=== PATIENT | female | born 1980 | race Caucasian/White ===

== ENCOUNTER 2018-01-30 17:46 | Emergency (ER) | payer OTHER ==
[2018-01-30] MEDS ORDERED: TRAMADOL HCL 50 MG TAB ONE (19:34)
--- NOTE | 2018-01-30 20:08 | RAD REPORT ---
EXAM DESCRIPTION: RAD - Foot Right 3 View - 01/30/2018 7:50 pm CLINICAL HISTORY: Persistent foot pain COMPARISON: None. FINDINGS: A small 2 millimeter bone fragment is seen along the lateral proximal aspect of the cuboid at the articulation with the calcaneus. This has the appearance of a small bone avulsion likely from ligament/tendon injury. Correlation is needed with any lateral right foot pain symptoms in this miranda on. No other evidence for fracture. No dislocation or periosteal reaction. No acute or destructive findin g seen. Early spurring at the Achilles attachment. No plantar spur. No air or foreign body in the soft tissues. IMPRESSION: Suspected small bone avulsion from the lateral proximal margin of the cuboid bone. Corre lation is needed with any pain symptoms or history of pain near the calcaneus cuboid articulation lat eral right foot.
--- NOTE | 2018-01-30 20:45 | ER ---
Nurse's Notes [facility] Name: Teresa Mayorga Age: 37 yrs Sex: Female : 1980 Arrival Date: 01/30/2018 Time: 17:52 Bed 28 Private MD: None, None Diagnosis: Fracture of cuboid bone Presentation: 01/30 18:14 Presenting complaint: Patient states: Pain to right foot for 2 months. Patient aj ambulated to triage with limp to right foot, while carrying her baby. Transition of care: patient was not received from another setting of care. Onset of symptoms was January 30, 2018. Care prior to arrival: None. 18:14 Method Of Arrival: Ambulatory aj 18:14 Acuity: VINNIE 4 aj 21:11 Initial Sepsis Screen: Does the patient meet any 2 criteria? No. Patient's initial mb3 sepsis screen is negative. Does the patient have a suspected source of infection? No. Patient's initial sepsis screen is negative. Triage Assessment: 18:15 General: Appears in no apparent distress. comfortable, Behavior is calm, cooperative, aj appropriate for age. Pain: Complains of pain in right foot. Neuro: Level of Consciousness is awake, alert, obeys commands, Oriented to person, place, time, situation, Appropriate for age. Respiratory: Airway is patent Respiratory effort is even, unlabored, Respiratory pattern is regular, symmetrical. Derm: Skin is intact, is healthy with good turgor, Skin is pink, warm \T\ dry. normal. Musculoskeletal: Reports pain in right foot. BILL PEDDLER: 18:15 LMP 01/27/2018 aj Historical: - Allergies: 18:15 Bees; aj - PMHx: 18:15 Diabetes - IDDM; aj - Immunization history:: Adult Immunizations unknown. - Social history:: Smoking status: Patient/guardian denies using tobacco. - Family history:: not pertinent. - Hospitalizations: : No recent hospitalization is reported. - History obtained from: . Screenin:10 Abuse screen: Denies threats or abuse. Nutritional screening: No deficits noted. mb3 Tuberculosis screening: No symptoms or risk factors identified. Fall Risk Fall in past 12 months (25 points). No secondary diagnosis (0 pts). No IV (0 pts). Ambulatory Aid- Crutches/Cane/Walker (15 pts). Gait- Impaired (20 pts.). Mental Status- Oriented to own ability (0 pts). Total Crowe Fall Scale indicates High Risk Score (45 or more points). Fall prevention measures have been instituted. Side Rails Up X 2 Placed Close to Nursing Station Frequent Obs/Assessments Occuring Family Present and informed to notify staff if the need to leave the bedside. Assessment: 20:15 General: Appears in no apparent distress. obese, unkempt, Behavior is cooperative, mb3 appropriate for age. Pain: Complains of pain in right foot. Neuro: No deficits noted. Cardiovascular: No deficits noted. Respiratory: No deficits noted. GI: No deficits noted. No signs and/or symptoms were reported involving the gastrointestinal system. : No deficits noted. No signs and/or symptoms were reported regarding the genitourinary system. Musculoskeletal: Swelling present in right foot Reports pain in right foot since 3 weeks ago. Vital Signs: 18:15 BP 116 / 75; Pulse 99; Resp 16; Temp 98.6; Pulse Ox 99% on R/A; Weight 101.15 kg; aj Height 5 ft. 5 in. (165.10 cm); 21:09 BP 135 / 93; Pulse 98; Resp 18; Pulse Ox 99% on R/A; mb3 18:15 Body Mass Index 37.11 (101.15 kg, 165.10 cm) aj ED Course: 17:52 Patient arrived in ED. mr 17:52 None, None is Private Physician. mr 18:15 Triage completed. aj 18:15 Arm band placed on right wrist. Patient placed in waiting room, Patient notified of aj wait time. X-ray ordered. 19:10 [facility] kav 19:10 Arun Marshall MD is Attending Physician. kav 19:30 Henok Narayan, RN is Primary Nurse. mb3 19:47 X-ray completed. Portable x-ray completed in exam room. Patient tolerated procedure kc2 well. 19:48 XRAY Foot RIGHT 3 View In Process Unspecified. EDMS 20:48 Rex Quintero MD is Referral Physician. kav 21:12 No provider procedures requiring assistance completed. Patient did not have IV access mb3 during this emergency room visit. 21:14 Patient has correct armband on for positive identification. Bed in low position. Call mb3 light in reach. Side rails up X 1. 21:35 Crutch training done. Orthoglass splint: Posterior short lleg splint applied on right mb3 leg. Administered Medications: 19:36 Drug: traMADol 50 mg Route: PO; mb3 20:57 Follow up: Response: No adverse reaction; Pain is decreased mb3 21:21 Drug: Ibuprofen 800 mg Route: PO; mb3 21:36 Follow up: Response: No adverse reaction mb3 Outcome: 20:45 Discharge ordered by MD. vera 21:35 Discharged to home ambulatory, with crutches, with family. mb3 21:35 Condition: stable 21:35 Discharge instructions given to patient, family, Instructed on discharge instructions, follow up and referral plans. medication usage, Demonstrated understanding of instructions, follow-up care, medications, Prescriptions given X 2. 21:36 Patient left the ED. mb3 Signatures: Dispatcher [employer] EDRossy Andrea, Kiya Alan RN, PARKING LOT SPOTTER PARKING LOT SPOTTER Trupti Roca mr Jaimie Garcia 2 Henok Narayan RN RN mb3
--- NOTE | 2018-01-30 20:45 | EDPHYS ---
Physician Documentation [facility] Name: Teresa Mayorga Age: 37 yrs Sex: Female : 1980 Arrival Date: 01/30/2018 Time: 17:52 Bed 28 Private MD: None, None ED Physician Arun Marshall HPI: 01/30 19:09 This 37 yrs old Female presents to ER via Ambulatory with complaints of Foot kav Pain. 19:30 The patient presents with an injury, pain, that is chronic. The complaints affect the kav dorsum of right foot. Context: The problem was sustained at work, resulted from a mis-step, on a floor edge, the patient can fully bear weight, the patient is able to ambulate, without difficulty. Onset: The symptoms/episode began/occurred 3 month(s) ago. Modifying factors: The symptoms are alleviated by nothing. the symptoms are aggravated by movement. Associated signs and symptoms: Pertinent positives: weakness, of the dorsum of right foot, Pertinent negatives calf tenderness, fever, nausea, numbness, rash, swelling, tingling, vomiting, warmth. Severity of symptoms: At their worst the symptoms were moderate, just prior to arrival. The patient has experienced a previous episode, approximately 3 months ago. The patient has not experienced similar symptoms in the past, The patient has experienced a previous episode, approximately 3 months ago. The patient has not recently seen a physician. morbid obesity. pt rates pain at 8/10 with sitting and ambulation. COFFEE SAMPLER: 18:15 LMP 01/27/2018 aj Historical: - Allergies: 18:15 Bees; aj - PMHx: 18:15 Diabetes - IDDM; aj - Immunization history:: Adult Immunizations unknown. - Social history:: Smoking status: Patient/guardian denies using tobacco. - Family history:: not pertinent. - Hospitalizations: : No recent hospitalization is reported. - History obtained from: . ROS: 19:36 Constitutional: Negative for fever, chills, and weight loss, Eyes: Negative for injury, kav pain, redness, and discharge, ENT: Negative for injury, pain, and discharge, Neck: Negative for injury, pain, and swelling, Cardiovascular: Negative for chest pain, palpitations, and edema, Respiratory: Negative for shortness of breath, cough, wheezing, and pleuritic chest pain, Abdomen/GI: Negative for abdominal pain, nausea, vomiting, diarrhea, and constipation, Back: Negative for injury and pain, : Negative for injury, bleeding, discharge, and swelling, Skin: Negative for injury, rash, and discoloration, Neuro: Negative for headache, weakness, numbness, tingling, and seizure, Psych: Negative for depression, anxiety, suicide ideation, homicidal ideation, and hallucinations, Allergy/Immunology: Negative for hives, rash, and allergies, Endocrine: Negative for neck swelling, polydipsia, polyuria, polyphagia, and marked weight changes, Hematologic/Lymphatic: Negative for swollen nodes, abnormal bleeding, and unusual bruising. 19:36 MS/extremity: Positive for decreased range of motion, pain, of the dorsum of right foot. Exam: 19:36 Constitutional: This is a well developed, well nourished patient who is awake, alert, kav and in no acute distress. Head/Face: Normocephalic, atraumatic. Eyes: Pupils equal round and reactive to light, extra-ocular motions intact. Lids and lashes normal. Conjunctiva and sclera are non-icteric and not injected. Cornea within normal limits. Periorbital areas with no swelling, redness, or edema. ENT: Nares patent. No nasal discharge, no septal abnormalities noted. Tympanic membranes are normal and external auditory canals are clear. Oropharynx with no redness, swelling, or masses, exudates, or evidence of obstruction, uvula midline. Mucous membranes moist. Neck: Trachea midline, no thyromegaly or masses palpated, and no cervical lymphadenopathy. Supple, full range of motion without nuchal rigidity, or vertebral point tenderness. No Meningismus. Chest/axilla: Normal chest wall appearance and motion. Nontender with no deformity. No lesions are appreciated. Cardiovascular: Regular rate and rhythm with a normal S1 and S2. No gallops, murmurs, or rubs. Normal PMI, no JVD. No pulse deficits. Respiratory: Lungs have equal breath sounds bilaterally, clear to auscultation and percussion. No rales, rhonchi or wheezes noted. No increased work of breathing, no retractions or nasal flaring. Abdomen/GI: Soft, non-tender, with normal bowel sounds. No distension or tympany. No guarding or rebound. No evidence of tenderness throughout. Back: No spinal tenderness. No costovertebral tenderness. Full range of motion. Skin: Warm, dry with normal turgor. Normal color with no rashes, no lesions, and no evidence of cellulitis. Neuro: Awake and alert, GCS 15, oriented to person, place, time, and situation. Cranial nerves II-XII grossly intact. Motor strength 5/5 in all extremities. Sensory grossly intact. Cerebellar exam normal. Normal gait. Psych: Awake, alert, with orientation to person, place and time. Behavior, mood, and affect are within normal limits. 19:36 Musculoskeletal/extremity: Extremities: noted in the dorsum of right foot: pain, ROM: full active range of motion, in the dorsum of right foot, Circulation is intact in all extremities. Pulses: are normal with no appreciated deficits, Perfusion: the patient is normally perfused throughout, pink, warm, noted to have brisk capillary refill, Perfusion: the extremity is normally perfused throughout, pink, warm, with brisk capillary refill, Calf tenderness, is absent, Edema, is not appreciated, Sensation intact. Joints: the displays pain at rest, painful range of motion, Weight bearing: able to fully bear weight, Tendon exam: specific tendon testing normal through active and passive range of motion DVT Exam: No signs of deep vein thrombosis. Calves: are non-tender, have equal circumference. Vital Signs: 18:15 BP 116 / 75; Pulse 99; Resp 16; Temp 98.6; Pulse Ox 99% on R/A; Weight 101.15 kg; aj Height 5 ft. 5 in. (165.10 cm); 21:09 BP 135 / 93; Pulse 98; Resp 18; Pulse Ox 99% on R/A; mb3 18:15 Body Mass Index 37.11 (101.15 kg, 165.10 cm) MDM: 19:11 Medical screening is not applicable. [facility] 20:43 Data reviewed: vital signs, nurses notes, radiologic studies, plain films. [facility] 01/30 18:17 Order name: XRAY Foot RIGHT 3 View; Complete Time: 20:29 01/30 20:30 Interpretation: Abnormal. [facility] 01/30 20:48 Order name: Splint - Ankle: Posterior [facility] 01/30 20:48 Order name: Crutches [facility] Administered Medications: 19:36 Drug: traMADol 50 mg Route: PO; mb3 20:57 Follow up: Response: No adverse reaction; Pain is decreased mb3 21:21 Drug: Ibuprofen 800 mg Route: PO; mb3 21:36 Follow up: Response: No adverse reaction mb3 Disposition: 01/30/18 20:45 Discharged to Home. Impression: Fracture of cuboid bone. - Condition is Stable. - Discharge Instructions: Avulsion Fracture of the Foot. - Prescriptions for Ibuprofen 800 mg Oral Tablet - take 1 tablet by ORAL route every 12 hours As needed take with food; 20 tablet. Tramadol 50 mg Oral Tablet - take 1 tablet by ORAL route every 8 hours as needed; 12 tablet. - Work release form, Medication Reconciliation Form, Thank You Letter, Prescription Opioid Use form. - Follow up: Private Physician; When: 5 - 6 days; Reason: If symptoms return, Recheck today's complaints, Continuance of care, Re-evaluation by your physician. Follow up: Rex Quintero MD; When: 2 - 3 days; Reason: Recheck today's complaints, Continuance of care, Re-evaluation by your physician. - Problem is chronic. - Symptoms have improved. Addendum: 02/03/2018 08:06 Co-signature as Attending Physician, Arun Marshall MD. r n Signatures: Dispatcher [employer] EDRossy Andrea RN Kiya Alan, BARREL STRAIGHTENER BARREL STRAIGHTENER Arun [place] MD MD rn Barnett, Mark, RN RN mb3 Corrections: (The following items were deleted from the chart) 01/30 20:48 20:45 01/30/2018 20:45 Discharged to Home. Impression: Fracture of cuboid bone. ka Condition is Stable. Discharge Instructions: Ankle Sprain, [id number]. Prescriptions for Ibuprofen 800 mg Oral Tablet - take 1 tablet by ORAL route every 12 hours As needed take with food; 20 tablet. and Forms are Medication Reconciliation Form, Thank You Letter, Antibiotic Education, Prescription Opioid Use. Follow up: Private Physician; When: 5 - 6 days; Reason: If symptoms return, Recheck today's complaints, Continuance of care, Re-evaluation by your physician. Problem is chronic. Symptoms have improved. kav 21:36 20:48 01/30/2018 20:45 Discharged to Home. Impression: Fracture of cuboid bone. mb3 Condition is Stable. Discharge Instructions: Avulsion Fracture of the Foot. Prescriptions for Ibuprofen 800 mg Oral Tablet - take 1 tablet by ORAL route every 12 hours As needed take with food; 20 tablet, Tramadol 50 mg Oral Tablet - take 1 tablet by ORAL route every 8 hours as needed; 12 tablet. and Forms are Medication Reconciliation Form, Thank You Letter, Antibiotic Education, Prescription Opioid Use. Follow up: Private Physician; When: 5 - 6 days; Reason: If symptoms return, Recheck today's complaints, Continuance of care, Re-evaluation by your physician. Follow up: Rex Quintero; When: 2 - 3 days; Reason: Recheck today's complaints, Continuance of care, Re-evaluation by your physician. Problem is chronic. Symptoms have improved. kav
[2018-01-30] MEDS ORDERED: IBUPROFEN 400 MG TAB ONE (21:20)
== END 2018-01-30 21:36 | disposition home or self-care (01) ==
LOC: ER 17:46
PROC: 2W3QX1Z Immobilization of Right Lower Leg using Splint (ICD-10-PCS; principal; 2018-01-30)
DX: S92.211A Displaced fracture of cuboid bone of right foot, initial encounter for closed fracture (principal); X58.XXXA Exposure to other specified factors, initial encounter; Y93.89 Activity, other specified; Y92.89 Other specified places as the place of occurrence of the external cause; Z91.030 Bee allergy status
CPT/HCPCS: 99284

== ENCOUNTER 2018-03-28 12:13 | Emergency (ER) | payer OTHER ==
--- OUTSIDE RECORDS SUMMARY | 2018-03-28 12:24 | XMS REPORT ---
:1980 Author Organization [employer] Care Team Providers Name Role Phone Tano Acosta Provider Role Unavailable Allergies No Known Allergies Problems Problem Type Condition Code Onset Dates Condition Status Assessment Essential hypertension I10 Active Assessment Sleep disturbance G47.9 Active Assessment Family history of cardiovascular Z82.49 Active disease Problem Body mass index (BMI) of 45.0-49.9 Z68.42 Active in adult Problem Sleep disturbance G47.9 Active Problem Essential hypertension I10 Active Assessment Type 2 diabetes mellitus without E11.9 Active complication, unspecified whether termite inspector insulin use Assessment Body mass index (BMI) of 45.0-49.9 Z68.42 Active in adult Problem Type 2 diabetes mellitus without E11.9 Active complication, unspecified whether mcc insulin use Medications Medication Code Code Instructions Start End Status Dosage System Date Date [facility]alog [facility] 69257865830 100 UNIT/ML Inactive 5u per Subcutaneous sliding three times a scale day Metformin HCl ND 62375246864 1000 MG Orally Active 1 tablet Twice a day with a meal [place] ND 82344165134 100-33 March 17, Active 10 units UNT-MCG/ML 2017 Subcutaneous daily Tramadol HCl ND 50640875174 50 MG Orally Active 1 tablet every 6 hrs as needed NovoLog ND 18336371252 100 UNIT/ML Inactive 15u Subcutaneous at bedtime Lisinopril ND 38846563771 5 MG Orally Active 1 tablet Once a day Ibuprofen ND 83334728547 800 MG Orally Active 1 tablet Three times a with food day or milk as needed Results No Known Results Summary Purpose [employer]Clinical[employer] Submission
[2018-03-28 13:22] LABS: Urine Blood NEGATIVE (NEG); Urine Glucose 2+ (NEG); Urine Protein NEGATIVE (NEG); Urine Specific Gravity 1.005 (1.005-1.030); Urine pH 5.5 (5.0-7.0)
[2018-03-28 13:35] LABS: Absolute Lymphocytes (CBC) 2.8 K/uL (0.7-4.9); Absolute Monocytes 0.7 K/uL (0.1-1.3); Absolute Neutrophil 6.7 K/uL (1.8-8.0); Eosinophils % 3.6 % (0-4.4); Hematocrit 40.4 % (36.0-45.0); Lymphocytes % 26.4 % (15.3-44.8); MCH 27.2 pg (27.0-35.0); MCV 78.8 fL (80-100); MPV 7.7 fL (7.6-11.3); Monocytes % 6.3 % (3.3-12.3); RBC Red Blood Cell Count 5.13 M/uL (3.86-4.86)
[2018-03-28 13:41] LABS: Urine Bacteria >50 /HPF (<20); Urine Culture Reflex Order REFLEXED; Urine RBC <5 /HPF (NONE SEEN)
[2018-03-28 13:45] LABS: Potassium 4.5 mmol/L (3.5-5.1)
[2018-03-28] MEDS ORDERED: INSULIN -REGULAR HUMAN 50 UNIT/0.5 ML ML ONE (13:53)
--- NOTE | 2018-03-28 14:50 | EDPHYS ---
Physician Documentation [facility] Name: Teresa Mayorga Age: 37 yrs Sex: Female : 1980 Arrival Date: 03/28/2018 Time: 12:15 Bed 25 Private MD: DEVORAH KHALIL ED Physician ShahrzadWillard HPI: 03/28 13:08 This 37 yrs old Female presents to ER via Ambulatory with complaints of High kav Blood Sugar. 14:40 The patient or guardian reports hyperglycemia, cant afford novolog insulin. Onset: The kav symptoms/episode began/occurred acutely, 1 week(s) ago. Associated signs and symptoms: Pertinent positives: ketones in urine. Current symptoms: In the emergency department the patient's symptoms are unchanged from the initial presentation. The patient has been recently seen by a physician: Dr. Odalis Khalil NP. Patient reports that she was taken off of her Metformin and Lantus by dr. chan. her insulin was not controlled on these meds. she then left the care of dr. lane and went to Odalis Khalil NP who put her back on the metformin 1000 mg po bid and Lantus 17 units q hs. She is no longer taking her Novolog 5 units AC tid as she "..can't afford it". blood sugar 407 on arrival to ED. . 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 - Social history:: Smoking status: Patient/guardian denies using tobacco. - Ebola Screening: : Patient denies travel to an Ebola-affected area in the 21 days before illness onset. - Family history:: not pertinent. - Hospitalizations: : No recent hospitalization is reported. - History obtained from: . ROS: 14:40 Constitutional: Negative for fever, chills, and weight loss, Eyes: Negative for injury, kav pain, redness, and discharge, ENT: Negative for injury, pain, and discharge, Neck: Negative for injury, pain, and swelling, Cardiovascular: Negative for chest pain, palpitations, and edema, Respiratory: Negative for shortness of breath, cough, wheezing, and pleuritic chest pain, Abdomen/GI: Negative for abdominal pain, nausea, vomiting, diarrhea, and constipation, Back: Negative for injury and pain, : Negative for injury, bleeding, discharge, and swelling, MS/Extremity: Negative for injury and deformity, Skin: Negative for injury, rash, and discoloration, Neuro: Negative for headache, weakness, numbness, tingling, and seizure, Psych: Negative for depression, anxiety, suicide ideation, homicidal ideation, and hallucinations, Allergy/Immunology: Negative for hives, rash, and allergies, Hematologic/Lymphatic: Negative for swollen nodes, abnormal bleeding, and unusual bruising. 14:40 Endocrine: Positive for hyperglycemia, Negative for polydipsia, polyphagia, polyuria. Exam: 14:40 Constitutional: This is a well developed, well nourished patient who is awake, alert, kav and in no acute distress. Head/Face: Normocephalic, atraumatic. Eyes: Pupils equal round and reactive to light, extra-ocular motions intact. Lids and lashes normal. Conjunctiva and sclera are non-icteric and not injected. Cornea within normal limits. Periorbital areas with no swelling, redness, or edema. ENT: Nares patent. No nasal discharge, no septal abnormalities noted. Tympanic membranes are normal and external auditory canals are clear. Oropharynx with no redness, swelling, or masses, exudates, or evidence of obstruction, uvula midline. Mucous membranes moist. Neck: Trachea midline, no thyromegaly or masses palpated, and no cervical lymphadenopathy. Supple, full range of motion without nuchal rigidity, or vertebral point tenderness. No Meningismus. Chest/axilla: Normal chest wall appearance and motion. Nontender with no deformity. No lesions are appreciated. Cardiovascular: Regular rate and rhythm with a normal S1 and S2. No gallops, murmurs, or rubs. Normal PMI, no JVD. No pulse deficits. Respiratory: Lungs have equal breath sounds bilaterally, clear to auscultation and percussion. No rales, rhonchi or wheezes noted. No increased work of breathing, no retractions or nasal flaring. Abdomen/GI: Soft, non-tender, with normal bowel sounds. No distension or tympany. No guarding or rebound. No evidence of tenderness throughout. Back: No spinal tenderness. No costovertebral tenderness. Full range of motion. Skin: Warm, dry with normal turgor. Normal color with no rashes, no lesions, and no evidence of cellulitis. MS/ Extremity: Pulses equal, no cyanosis. Neurovascular intact. Full, normal range of motion. Neuro: Awake and alert, GCS 15, oriented to person, place, time, and situation. Cranial nerves II-XII grossly intact. Motor strength 5/5 in all extremities. Sensory grossly intact. Cerebellar exam normal. Normal gait. Psych: Awake, alert, with orientation to person, place and time. Behavior, mood, and affect are within normal limits. Vital Signs: 12:23 Pulse 110; Resp 18; Temp 97.9; Pulse Ox 99% ; Weight 124.28 kg; Height 5 ft. 5 in. sg (165.10 cm); Pain 0/10; 12:26 BP 104 / 81; sg 13:32 BP 134 / 73; Pulse 94; Resp 17; Pulse Ox 98% on R/A; tw2 14:27 BP 127 / 85; Pulse 111; Resp 17; Pulse Ox 100% on R/A; tw2 15:07 BP 111 / 81; Pulse 97; Resp 17; Pulse Ox 100% on R/A; tw2 12:23 Body Mass Index 45.60 (124.28 kg, 165.10 cm) MDM: 13:00 Medical screening is not applicable. kav 14:40 Data reviewed: vital signs, nurses notes, lab test result(s). ED course: repeat bs 218. kav 14:40 Differential diagnosis: hypoglycemic episode. 03/28 13:07 Order name: Basic Metabolic Panel; Complete Time: 13:48 03/28 13:07 Order name: CBC with Diff; Complete Time: 13:43 03/28 13:07 Order name: Creatinine for Radiology; Complete Time: 13:48 03/28 13:07 Order name: Urine Microscopic Only; Complete Time: 13:43 [facility] 03/28 13:09 Order name: Urine Dipstick--Ancillary (enter results); Complete Time: 13:43 hi 03/28 13:09 Order name: Urine --Ancillary (enter results); Complete Time: 13:43 hi 03/28 13:07 Order name: Urine Test (obtain specimen); Complete Time: 13:12 03/28 13:07 Order name: IV Saline Lock; Complete Time: 13:24 03/28 13:07 Order name: Labs collected and sent; Complete Time: 13:24 03/28 13:07 Order name: Urine Dipstick-Ancillary (obtain specimen); Complete Time: 13:12 03/28 13:42 Order name: Urine Culture EDMS Administered Medications: 13:52 Drug: Insulin Regular Human 10 units {Co-Signature: tl3 (Tianna Olivo RN).} Route: IVP; tw2 Site: left antecubital; 14:27 Follow up: Response: No adverse reaction; Blood sugar is lowered tw2 Point of Care Testing: Blood Glucose: 12:58 Blood Glucose: 407 mg/dL; tw2 14:27 Blood Glucose: 218 mg/dL; tw2 Ranges: Critical Glucose Levels:Adult <50 mg/dl or >400 mg/dl <40 mg/dl or >180 mg/dl Disposition: 17:29 Co-signature as Attending Physician, Willard Markham MD I agree with the assessment and kdr plan of care. Disposition: 03/28/18 14:50 Discharged to Home. Impression: Hypoglycemia, unspecified, Uncontrolled Diabetes Mellitus. - Condition is Stable. - Discharge Instructions: Type 1 Diabetes Mellitus, Adult, Hypoglycemia, Blood Glucose Monitoring, Adult, Diabetes Mellitus and Food, Type 2 Diabetes Mellitus, Adult, [id number]. - Prescriptions for Novolin R 100 unit/mL Injection solution - inject 5 unit by SUBCUTANEOUS route 3 times per day as a single rapid injection tid before meals. must check blood sugar prior to injection; 1 vial. - Medication Reconciliation Form, Thank You Letter, Prescription Opioid Use, Work release form, Family Work Release form. - Follow up: DEVORAH KHALIL; When: 2 - 3 days; Reason: Recheck today's complaints, Continuance of care, Re-evaluation by your physician. - Problem is chronic. - Symptoms have improved. - Notes: continue to take your metformin 1000 mg po bid and your lantus 17 untis q hs must f/u with your pcp/odalis khalil on Saturday03/31/18 Signatures: Dispatcher [employer] EDMS Rex Collier RN RN sg Willard Markham MD MD kdr Vern, Katherine, INTERACTIVE MEDIA SPECIALIST INTERACTIVE MEDIA SPECIALIST Merary Og RN RN tw2 Tianna Olivo RN tl3 Corrections: (The following items were deleted from the chart) 15:08 14:50 03/28/2018 14:50 Discharged to Home. Impression: Hypoglycemia, unspecified; tw2 Uncontrolled Diabetes Mellitus. Condition is Stable. Forms are Medication Reconciliation Form, Thank You Letter, Antibiotic Education, Prescription Opioid Use. Follow up: DEVORAH KHALIL; When: 2 - 3 days; Reason: Recheck today's complaints, Continuance of care, Re-evaluation by your physician. Problem is chronic. Symptoms have improved. kav
--- NOTE | 2018-03-28 14:50 | ER ---
Nurse's Notes [facility] Name: Teresa Mayorga Age: 37 yrs Sex: Female : 1980 Arrival Date: 03/28/2018 Time: 12:15 Bed 25 Private MD: DEVORAH TREJO Diagnosis: Hypoglycemia, unspecified;Uncontrolled Diabetes Mellitus Presentation: 03/28 12:21 Presenting complaint: Patient states: My phsycian recently took me off of all my sg insulin medications because he said that it can be managed without the medication. So today my blood sugar has been high 400's and isnt really responding, Im taking metformin 1000 mg and a long acting insulin. Transition of care: patient was not received from another setting of care. Onset of symptoms was March 28, 2018. Risk Assessment: Do you want to hurt yourself or someone else? Patient reports no desire to harm self or others. Initial Sepsis Screen: Does the patient meet any 2 criteria? No. Patient's initial sepsis screen is negative. Does the patient have a suspected source of infection? No. Patient's initial sepsis screen is negative. Care prior to arrival: None. 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 - Social history:: Smoking status: Patient/guardian denies using tobacco. - Ebola Screening: : Patient denies travel to an Ebola-affected area in the 21 days before illness onset. - Family history:: not pertinent. - Hospitalizations: : No recent hospitalization is reported. - History obtained from: . Screenin:33 Abuse screen: Denies threats or abuse. Nutritional screening: No deficits noted. tw2 Tuberculosis screening: No symptoms or risk factors identified. Fall Risk None identified. Assessment: 12:40 General: Appears in no apparent distress. obese, Behavior is calm, cooperative, tw2 appropriate for age. Pain: Denies pain. Neuro: Level of Consciousness is awake, alert, obeys commands, Oriented to person, place, time, situation. Cardiovascular: Heart tones S1 S2 Capillary refill < 3 seconds Patient's skin is warm and dry. Respiratory: Airway is patent Respiratory effort is even, unlabored, Respiratory pattern is regular, symmetrical, Breath sounds are clear bilaterally. GI: No signs and/or symptoms were reported involving the gastrointestinal system. Abdomen is round non-distended, obese, Bowel sounds present X 4 quads. : No signs and/or symptoms were reported regarding the genitourinary system. EENT: No signs and/or symptoms were reported regarding the EENT system. Derm: No signs and/or symptoms reported regarding the dermatologic system. Musculoskeletal: Range of motion: intact in all extremities. 13:32 Reassessment: Patient appears in no apparent distress at this time. No changes from tw2 previously documented assessment. Patient and/or family updated on plan of care and expected duration. Pain level reassessed. Patient is alert, oriented x 3, equal unlabored respirations, skin warm/dry/pink. 14:27 Reassessment: Patient appears in no apparent distress at this time. No changes from tw2 previously documented assessment. Patient and/or family updated on plan of care and expected duration. Pain level reassessed. Patient is alert, oriented x 3, equal unlabored respirations, skin warm/dry/pink. 15:07 Reassessment: Patient appears in no apparent distress at this time. No changes from tw2 previously documented assessment. Patient and/or family updated on plan of care and expected duration. Pain level reassessed. Patient is alert, oriented x 3, equal unlabored respirations, skin warm/dry/pink. Vital Signs: 12:23 Pulse 110; Resp 18; Temp 97.9; Pulse Ox 99% ; Weight 124.28 kg; Height 5 ft. 5 in. sg (165.10 cm); Pain 0/10; 12:26 BP 104 / 81; sg 13:32 BP 134 / 73; Pulse 94; Resp 17; Pulse Ox 98% on R/A; tw2 14:27 BP 127 / 85; Pulse 111; Resp 17; Pulse Ox 100% on R/A; tw2 15:07 BP 111 / 81; Pulse 97; Resp 17; Pulse Ox 100% on R/A; tw2 12:23 Body Mass Index 45.60 (124.28 kg, 165.10 cm) ED Course: 12:15 Patient arrived in ED. sb2 12:16 DEVORAH TREJO is Private Physician. sb2 12:23 Triage completed. sg 12:25 Arm band placed on. sg 12:40 Bed in low position. Call light in reach. Adult w/ patient. Pulse ox on. NIBP on. tw2 12:44 Merary Sun, RN is Primary Nurse. tw2 12:59 [facility] kav 13:00 Willard Markham MD is Attending Physician. kav 13:25 Inserted saline lock: 22 gauge in left antecubital area, using aseptic technique. Blood tw2 collected. 14:48 DEVORAH TREJO is Referral Physician. kav 15:07 No provider procedures requiring assistance completed. IV discontinued, intact, tw2 bleeding controlled, No redness/swelling at site. Pressure dressing applied. Administered Medications: 13:52 Drug: Insulin Regular Human 10 units {Co-Signature: tl3 (Tianna Olivo RN).} Route: IVP; tw2 Site: left antecubital; 14:27 Follow up: Response: No adverse reaction; Blood sugar is lowered tw2 Point of Care Testing: Blood Glucose: 12:58 Blood Glucose: 407 mg/dL; tw2 14:27 Blood Glucose: 218 mg/dL; tw2 Ranges: Outcome: 14:50 Discharge ordered by . kav 15:07 Discharged to home ambulatory, with family. tw2 15:07 Condition: stable 15:07 Discharge instructions given to patient, family, Instructed on discharge instructions, follow up and referral plans. medication usage, Demonstrated understanding of instructions, follow-up care, medications, Prescriptions given X 1. 15:08 Patient left the ED. tw2 Signatures: Rex Collier, RN RN Kiya Vazquez FNP FNP ka Merary Sun RN RN tw2 Bonnie Enriquez sb2 Tianna Olivo RN tl3
== END 2018-03-28 15:08 | disposition home or self-care (01) ==
LOC: ER 12:13
DX: E10.649 Type 1 diabetes mellitus with hypoglycemia without coma (principal)
CPT/HCPCS: 36415; 80048; 81003; 81015; 81025; 82962; 85025; 87086; 87088; 96374; 99284

== ENCOUNTER 2018-04-26 12:15 | Emergency (ER) | payer OTHER ==
--- OUTSIDE RECORDS SUMMARY | 2018-04-26 12:17 | XMS REPORT ---
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 Assessment Body mass index (BMI) of 45.0-49.9 Z68.42 Active in adult Problem Type 2 diabetes mellitus without E11.9 Active complication, unspecified whether snf insulin use Medications Medication Code Code Instructions Start End Status Dosage System Date Date Humalog [facility] 81778342975 100 UNIT/ML Inactive 5u per Subcutaneous sliding three times a scale day Metformin HCl ND 17966351031 1000 MG Orally Active 1 tablet Twice a day with a meal [place] ND 52264338144 100-33 March 17, Active 10 units UNT-MCG/ML 2017 Subcutaneous daily Tramadol HCl ND 37926797746 50 MG Orally Active 1 tablet every 6 hrs as needed NovoLog ND 08048686415 100 UNIT/ML Inactive 15u Subcutaneous at bedtime Lisinopril ND 72810311635 5 MG Orally Active 1 tablet Once a day Ibuprofen ND 44541782379 800 MG Orally Active 1 tablet Three times a with food day or milk as needed Results No Known Results Summary Purpose eClinicalWorks Submission
[2018-04-26] MEDS ORDERED: HYDROCODONE/APAP 5/325 MG TAB ONE (13:22)
[2018-04-26 13:55] LABS: Urine Blood NEGATIVE (NEG); Urine Glucose 2+ (NEG); Urine Protein NEGATIVE (NEG)
--- NOTE | 2018-04-26 13:59 | RAD REPORT ---
EXAM DESCRIPTION: RAD - Lumbar Spine 3 Views - 04/26/2018 1:52 pm CLINICAL HISTORY: fall, back pain Radiculopathy COMPARISON: No comparisons FINDINGS: Vertebral body heights appear maintained. No compression fracture noted. Mild disc thinnin g at the lower levels of the lumbar spine is seen. No spondylolysis or spondylolisthesis. IMPRESSION: Minimal lower lumbar spondylosis.
--- NOTE | 2018-04-26 13:59 | RAD REPORT ---
EXAM DESCRIPTION: RAD - Knee Right 3 View - 04/26/2018 1:53 pm CLINICAL HISTORY: fall, knee pain COMPARISON: None FINDINGS: No fracture or dislocation is seen. No suprapatellar joint effusion.
--- NOTE | 2018-04-26 14:00 | RAD REPORT ---
EXAM DESCRIPTION: RAD - Ankle Right 3 View - 04/26/2018 1:53 pm CLINICAL HISTORY: injury Fall, ankle pain COMPARISON: None FINDINGS: No acute fracture or dislocation is seen. Prominent posterior calcaneal spur is seen.
--- NOTE | 2018-04-26 15:46 | RAD REPORT ---
EXAM DESCRIPTION: RAD - Foot Right 3 View - 04/26/2018 3:38 pm CLINICAL HISTORY: INJURY Fall, pain COMPARISON: None FINDINGS: No acute fracture or dislocation is seen. Small posterior calcaneal spur seen.
--- NOTE | 2018-04-26 15:51 | EDPHYS ---
Physician Documentation [facility] Name: Teresa Mayorga Age: 38 yrs Sex: Female : 1980 Arrival Date: 04/26/2018 Time: 12:18 Bed 24 Private MD: DEVORAH TREJO ED Physician Arun Marshall HPI: 04/26 12:50 This 38 yrs old Female presents to ER via Ambulatory with complaints of Fall jmm Injury. 12:50 Details of fall: The patient fell from an upright position, while walking. Onset: The jmm symptoms/episode began/occurred acutely, just prior to arrival. This is a 38 year old female with a history of DM that presents to the ED with lower back pain, knee pain, ankle pain, and foot pain falling a fall which occurred earlier today. patient states she slipped down 3 steps while walking down the stares. Patient states she fell backwards. Denies hitting her head, LOC. . 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 - Social history:: Smoking status: Patient/guardian denies using tobacco. - Ebola Screening: : Patient negative for fever greater than or equal to 101.5 degrees Fahrenheit, and additional compatible Ebola Virus Disease symptoms. ROS: 12:50 Constitutional: Negative for fever, chills, and weight loss, Cardiovascular: Negative jmm for chest pain, palpitations, and edema, Respiratory: Negative for shortness of breath, cough, wheezing, and pleuritic chest pain, Abdomen/GI: Negative for abdominal pain, nausea, vomiting, diarrhea, and constipation. 12:50 Skin: Negative for injury, rash, and discoloration, Neuro: Negative for headache, weakness, numbness, tingling, and seizure. 12:50 Back: Positive for pain at rest, pain with movement. 12:50 MS/extremity: Positive for pain. 12:50 All other systems are negative. Exam: 12:50 Head/Face: atraumatic. Chest/axilla: Normal chest wall appearance and motion. una Cardiovascular: Regular rate and rhythm. No edema appreciated Respiratory: Normal respirations, no respiratory distress appreciated 12:50 Constitutional: The patient appears in no acute distress, alert, awake. 12:50 Back: paraspinal lumbar tenderness on palpation. 12:50 Musculoskeletal/extremity: ROM: intact in all extremities. 12:50 Musculoskeletal/extremity: The right anterior knee, right medial and lateral malleolus, and right foot are diffusely tender to palpation, full dorsalis pulse, no deformity noted. FROM appreciated, Compartments are soft. NVI. 12:50 Skin: Appearance: Color: normal in color. 12:50 Neuro: Orientation: is normal, Mentation: is normal, Memory: is normal. Vital Signs: 12:31 BP 120 / 70; Pulse 87; Resp 18; Temp 97.8; Pulse Ox 99% on R/A; Weight 111.13 kg (R); aj1 Height 5 ft. 5 in. (165.10 cm) (R); Pain 9/10; 14:00 BP 122 / 74; Pulse 86; Resp 16; Pulse Ox 100% on R/A; Pain 4/10; hb 12:31 Body Mass Index 40.77 (111.13 kg, 165.10 cm) aj1 MDM: 12:50 Patient medically screened. [facility] 15:48 Data reviewed: vital signs, nurses notes, radiologic studies, plain films. Counseling: una I had a detailed discussion with the patient and/or guardian regarding: the historical points, exam findings, and any diagnostic results supporting the discharge/admit diagnosis, radiology results, the need for outpatient follow up, to return to the emergency department if symptoms worsen or persist or if there are any questions or concerns that arise at home. 04/26 13:17 Order name: Urine Dipstick--Ancillary (enter results); Complete Time: 14:05 04/26 13:17 Order name: Urine --Ancillary (enter results); Complete Time: 14:05 04/26 13:02 Order name: Ankle Right 3 View XRAY; Complete Time: 14:05 [facility] 04/26 13:02 Order name: Knee Right 3 View XRAY; Complete Time: 14:05 [facility] 04/26 13:02 Order name: Lumbar Spine (3 Views) XRAY; Complete Time: 14:05 [facility] 04/26 13:02 Order name: Urine Dipstick-Ancillary (obtain specimen); Complete Time: 13:15 [facility] 04/26 13:02 Order name: Urine Test (obtain specimen); Complete Time: 13:16 [facility] 04/26 15:22 Order name: Foot Right 3 View; Complete Time: 15:48 [facility] 04/26 15:48 Order name: Reynaldo wrap-joint; Complete Time: 16:05 [facility] Administered Medications: 13:19 Drug: [place] 5 mg-325 mg 1 tabs Route: PO; hb 14:00 Follow up: Response: No adverse reaction; Pain is decreased hb Disposition: 17:47 Co-signature as Attending Physician, Arun Marshall MD. rn Disposition: 04/26/18 15:49 Discharged to Home. Impression: Sprain of ankle, Internal derangement of knee, Sprain of ligaments of lumbar spine. - Condition is Stable. - Discharge Instructions: Ankle Sprain, Back Pain, Adult, Knee Pain. - Prescriptions for Ultracet 37.5- 325 mg Oral Tablet - take 1 tablet by ORAL route every 6 hours - for up to 5 days; do not exceed 8 tablets per day.; 20 tablet. - Work release form, Medication Reconciliation Form, Thank You Letter, Antibiotic Education, Prescription Opioid Use form. - Follow up: Private Physician; When: 2 - 3 days; Reason: Recheck today's complaints, Continuance of care, Re-evaluation by your physician. Follow up: Obed Beatty MD; When: 2 - 3 days; Reason: Recheck today's complaints, Continuance of care, Re-evaluation by your physician. Signatures: Dispatcher [employer] [facility] Kae Loya RN RN aj1 Rell Yepez PA PA [facility] Arun Marshall MD MD rn Baxter, Heather, RN RN Kg Garrido RN RN rv Corrections: (The following items were deleted from the chart) 15:37 13:02 Foot Right 3 View+RAD.RAD.BRZ ordered. [facility] 15:56 15:49 04/26/2018 15:49 Discharged to Home. Impression: Sprain of ankle; Internal jmm derangement of knee; Sprain of ligaments of lumbar spine. Condition is Stable. Forms are Medication Reconciliation Form, Thank You Letter, Antibiotic Education, Prescription Opioid Use. Follow up: Private Physician; When: 2 - 3 days; Reason: Recheck today's complaints, Continuance of care, Re-evaluation by your physician. [facility] 16:08 15:56 04/26/2018 15:49 Discharged to Home. Impression: Sprain of ankle; Internal rv derangement of knee; Sprain of ligaments of lumbar spine. Condition is Stable. Discharge Instructions: Ankle Sprain, Back Pain, Adult, Knee Pain. Prescriptions for Ultracet 37.5-325 mg Oral Tablet - take 1 tablet by ORAL route every 6 hours - for up to 5 days; do not exceed 8 tablets per day.; 20 tablet. and Forms are Medication Reconciliation Form, Thank You Letter, Antibiotic Education, Prescription Opioid Use, Work release form. Follow up: Private Physician; When: 2 - 3 days; Reason: Recheck today's complaints, Continuance of care, Re-evaluation by your physician. Follow up: Dr. Obed Beatty; When: 2 - 3 days; Reason: Recheck today's complaints, Continuance of care, Re-evaluation by your physician. [facility]
--- NOTE | 2018-04-26 15:51 | ER ---
Nurse's Notes [facility] Name: Teresa Mayorga Age: 38 yrs Sex: Female : 1980 Arrival Date: 04/26/2018 Time: 12:18 Bed 24 Private MD: DEVORAH TREJO Diagnosis: Sprain of ankle;Internal derangement of knee;Sprain of ligaments of lumbar spine Presentation: 04/26 12:27 Presenting complaint: Patient states: "I fell down 4 stairs. I was walking my dog and aj1 my foot slipped. I hit my back and my knee and my right ankle." Denies hitting head, syncope, vomiting. Reports lower back pain, right knee pain, and right ankle pain. Patient ambulated to triage with a limp. Limited ROM in right knee and right ankle. Transition of care: patient was not received from another setting of care. Onset of symptoms was April 26, 2018 at 10:30. Risk Assessment: Do you want to hurt yourself or someone else? Patient reports no desire to harm self or others. Initial Sepsis Screen: Does the patient meet any 2 criteria? No. Patient's initial sepsis screen is negative. Does the patient have a suspected source of infection? No. Patient's initial sepsis screen is negative. Care prior to arrival: None. 12:27 Method Of Arrival: Ambulatory aj1 12:27 Acuity: VINNIE 4 aj1 Triage Assessment: 12:31 General: Appears in no apparent distress. uncomfortable, Behavior is calm, cooperative, aj1 appropriate for age. Pain: Complains of pain in low back area, right ankle and right knee Pain currently is 9 out of 10 on a pain scale. Neuro: Level of Consciousness is awake, alert, obeys commands. Cardiovascular: Patient's skin is warm and dry. Respiratory: Airway is patent Respiratory effort is even, unlabored, Respiratory pattern is regular, symmetrical. Musculoskeletal: Range of motion: limited in right knee and right ankle. 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 - Social history:: Smoking status: Patient/guardian denies using tobacco. - Ebola Screening: : Patient negative for fever greater than or equal to 101.5 degrees Fahrenheit, and additional compatible Ebola Virus Disease symptoms. Screenin:15 Abuse screen: Denies threats or abuse. Denies injuries from another. Nutritional hb screening: No deficits noted. Tuberculosis screening: No symptoms or risk factors identified. Fall Risk None identified. Assessment: 13:15 General: Appears in no apparent distress. Behavior is calm, cooperative. Pain: Pain hb currently is 7 out of 10 on a pain scale. Neuro: Level of Consciousness is awake, alert, obeys commands, Oriented to person, place, time, situation. Cardiovascular: Capillary refill < 3 seconds Patient's skin is warm and dry. Respiratory: Airway is patent Trachea midline Respiratory effort is even, unlabored, Respiratory pattern is regular, symmetrical. Musculoskeletal: Reports pain in right leg and right knee and right ankle and low back area. 14:00 Reassessment: Patient appears in no apparent distress at this time. Patient and/or hb family updated on plan of care and expected duration. Pain level reassessed. Patient is alert, oriented x 3, equal unlabored respirations, skin warm/dry/pink. 14:56 Reassessment: Patient appears in no apparent distress at this time. Patient and/or hb family updated on plan of care and expected duration. Pain level reassessed. Patient is alert, oriented x 3, equal unlabored respirations, skin warm/dry/pink. Awaiting radiology results at this time. Vital Signs: 12:31 BP 120 / 70; Pulse 87; Resp 18; Temp 97.8; Pulse Ox 99% on R/A; Weight 111.13 kg (R); aj1 Height 5 ft. 5 in. (165.10 cm) (R); Pain 9/10; 14:00 BP 122 / 74; Pulse 86; Resp 16; Pulse Ox 100% on R/A; Pain 4/10; hb 12:31 Body Mass Index 40.77 (111.13 kg, 165.10 cm) aj1 ED Course: 12:18 Patient arrived in ED. sb2 12:18 DEVORAH TREJO is Private Physician. sb2 12:20 Patient not present in the lobby. Registration states she told them she was running out aj1 to her car and would be back. 12:29 Triage completed. aj1 12:31 Arm band placed on Patient placed in waiting room, Patient notified of wait time. aj1 12:45 Rell Yepez PA is PHCP. jmm 12:45 Arun Marshall MD is Attending Physician. jmm 13:15 Patient has correct armband on for positive identification. Bed in low position. Call hb light in reach. Side rails up X 1. 13:19 Patrizia Randolph, RN is Primary Nurse. hb 13:43 Ankle Right 3 View XRAY In Process Unspecified. EDMS 13:43 Knee Right 3 View XRAY In Process Unspecified. EDMS 13:43 Lumbar Spine (3 Views) XRAY In Process Unspecified. EDMS 15:38 Foot Right 3 View In Process Unspecified. EDMS 15:56 Obed Beatty MD is Referral Physician. m 16:07 No provider procedures requiring assistance completed. Patient did not have IV access rv during this emergency room visit. Administered Medications: 13:19 Drug: Constantine 5 mg-325 mg 1 tabs Route: PO; hb 14:00 Follow up: Response: No adverse reaction; Pain is decreased hb Outcome: 15:49 Discharge ordered by MD. [facility] 16:07 Discharged to home ambulatory. rv 16:07 Condition: improved 16:07 Discharge instructions given to patient, Instructed on discharge instructions, follow up and referral plans. medication usage, Prescriptions given X 1. 16:08 Patient left the ED. rv Signatures: Dispatcher [employer] EDMS Kae Loya RN RN aj1 Rell Yepez PA PA m Patrizia Randolph, JERRI RN Bonnie Enriquez sb2 Kg Garrido RN RN rv Corrections: (The following items were deleted from the chart) 12:34 12:31 Arm band placed on Patient placed in an exam room, aj1 aj1 15:37 13:43 In radiology for Foot Right 3 View+RAD.RAD.[email or web address]. EDMS EDMS
== END 2018-04-26 16:08 | disposition home or self-care (01) ==
LOC: ER 12:15
DX: S93.401A Sprain of unspecified ligament of right ankle, initial encounter (principal); W10.8XXA Fall (on) (from) other stairs and steps, initial encounter; Y93.89 Activity, other specified; Y92.9 Unspecified place or not applicable; S83.91XA Sprain of unspecified site of right knee, initial encounter; S33.5XXA Sprain of ligaments of lumbar spine, initial encounter; E11.9 Type 2 diabetes mellitus without complications; Z79.4 Long term (current) use of insulin; Z79.84 Long term (current) use of oral hypoglycemic drugs
CPT/HCPCS: 72100; 81003; 81025; 99283

== ENCOUNTER 2018-08-14 23:15 | Emergency (ER) | payer OTHER ==
--- OUTSIDE RECORDS SUMMARY | 2018-08-14 23:17 | XMS REPORT ---
[...] mellitus without E11.9 Active complication, unspecified whether reel hooker insulin use Assessment Body mass index (BMI) of 45.0-49.9 Z68.42 Active in adult Problem Type 2 diabetes mellitus without E11.9 Active complication, unspecified whether custodial insulin use Medications Medication Code Code Instructions Start End Status Dosage System Date Date Humalog [facility] 57079828534 100 UNIT/ML Inactive 5u per Subcutaneous sliding three times a scale day Metformin HCl ND 33991198962 1000 MG Orally Active 1 tablet Twice a day with a meal Soliqua ND 21193775435 100-33 March 17, Active 10 units UNT-MCG/ML 2017 Subcutaneous daily Tramadol HCl ND 17594233251 50 MG Orally Active 1 tablet every 6 hrs as needed NovoLog ND 92944251153 100 UNIT/ML Inactive 15u Subcutaneous at bedtime Lisinopril ND 91172969959 5 MG Orally Active 1 tablet Once a day Ibuprofen ND 89268703489 800 MG Orally Active 1 tablet Three times a with food day or milk as needed Results No Known Results Summary Purpose eClinicalWorks Submission
--- NOTE | 2018-08-15 00:57 | EDPHYS ---
Physician Documentation [facility] Name: Teresa Mayorga Age: 38 yrs Sex: Female : 1980 Arrival Date: 08/14/2018 Time: 23:20 Bed 27 Private MD: ED Physician Alexandr Albright HPI: 08/15 00:51 This 38 yrs old Female presents to ER via Ambulatory with complaints of Foot gs Pain. 00:51 The complaints affect the right foot. Context: The problem was sustained at home, gs resulted from the patient falling, Mechanism of Injury: Hyperdorsiflexion. Onset: The symptoms/episode began/occurred 3 week(s) ago, and became persistent. Modifying factors: The symptoms are alleviated by nothing, the symptoms are aggravated by weight bearing. Associated signs and symptoms: Pertinent negatives: calf tenderness, numbness, swelling. Severity of symptoms: At their worst the symptoms were moderate, in the emergency department the symptoms are unchanged. The patient has not experienced similar symptoms in the past. 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 - Social history:: Smoking status: Patient/guardian denies using tobacco, never smoked. - Ebola Screening: : Patient negative for fever greater than or equal to 101.5 degrees Fahrenheit, and additional compatible Ebola Virus Disease symptoms Patient denies exposure to infectious person Patient denies travel to an Ebola-affected area in the 21 days before illness onset. ROS: 08/15 00:51 All other systems are negative. gs Exam: 00:51 Head/Face: Normocephalic, atraumatic. Neck: Trachea midline, no thyromegaly or masses gs palpated, and no cervical lymphadenopathy. Supple, full range of motion without nuchal rigidity, or vertebral point tenderness. No Meningismus. Cardiovascular: Regular rate and rhythm with a normal S1 and S2. No gallops, murmurs, or rubs. Normal PMI, no JVD. No pulse deficits. Respiratory: Lungs have equal breath sounds bilaterally, clear to auscultation and percussion. No rales, rhonchi or wheezes noted. No increased work of breathing, no retractions or nasal flaring. Abdomen/GI: Soft, non-tender, with normal bowel sounds. No distension or tympany. No guarding or rebound. No evidence of tenderness throughout. Back: No spinal tenderness. No costovertebral tenderness. Full range of motion. Skin: Warm, dry with normal turgor. Normal color with no rashes, no lesions, and no evidence of cellulitis. Neuro: Awake and alert, GCS 15, oriented to person, place, time, and situation. Cranial nerves II-XII grossly intact. Motor strength 5/5 in all extremities. Sensory grossly intact. Cerebellar exam normal. Normal gait. 00:51 Constitutional: The patient appears alert, awake. 00:51 Musculoskeletal/extremity: Extremities: noted in the dorsum of right foot: tenderness, deformity, ecchymosis, erythema, swelling, Circulation is intact in all extremities. Sensation intact. Vital Signs: 08/14 23:48 BP 105 / 61; Pulse 105; Resp 16; Temp 98.4; Pulse Ox 99% on R/A; Weight 117.93 kg (R); rv Height 5 ft. 5 in. (165.10 cm); 08/15 01:10 BP 112 / 66; Pulse 99; Resp 16; Pulse Ox 99% on R/A; rv 08/14 23:48 Body Mass Index 43.27 (117.93 kg, 165.10 cm) rv MDM: 00:09 Patient medically screened. gs 00:51 Differential diagnosis: fracture, sprain, arthritis. Data reviewed: vital signs, nurses gs notes. Counseling: I had a detailed discussion with the patient and/or guardian regarding: radiology results, the need for outpatient follow up, a orthopedic surgeon. Response to treatment: the patient's symptoms have mildly improved after treatment, and as a result, I will discharge patient. 08/15 00:09 Order name: Foot Right 3 View XRAY gs Administered Medications: No medications were administered Disposition: 08/15/18 00:57 Discharged to Home. Impression: Sprain of tarsometatarsal ligament of right foot. - Condition is Stable. - Discharge Instructions: Foot Sprain, Foot Pain. - Medication Reconciliation Form, Thank You Letter, Antibiotic Education, Prescription Opioid Use form. - Follow up: Private Physician; When: 2 - 3 days; Reason: Re-evaluation by your physician. Follow up: Bradly Grajeda MD; When: 2 - 3 days; Reason: Re-evaluation by your physician. - Problem is new. - Symptoms have improved. Signatures: Dispatcher [employer] [facility] Alexandr Albright MD MD Kg Garrido RN RN rv Corrections: (The following items were deleted from the chart) 01:12 00:57 08/15/2018 00:57 Discharged to Home. Impression: Sprain of tarsometatarsal rv ligament of right foot. Condition is Stable. Forms are Medication Reconciliation Form, Thank You Letter, Antibiotic Education, Prescription Opioid Use. Follow up: Private Physician; When: 2 - 3 days; Reason: Re-evaluation by your physician. Follow up: Bradly Grajeda; When: 2 - 3 days; Reason: Re-evaluation by your physician. Problem is new. Symptoms have improved.
--- NOTE | 2018-08-15 00:57 | ER ---
Nurse's Notes [facility] Name: Teresa Mayorga Age: 38 yrs Sex: Female : 1980 Arrival Date: 08/14/2018 Time: 23:20 Bed 27 Private MD: Diagnosis: Sprain of tarsometatarsal ligament of right foot Presentation: 08/14 23:45 Presenting complaint: Patient states: PATIENT FELL ON July ON HER RIGHT SIDE. rv HSE HURT HER RIGHT KNEE AND RIGHT ELBOW. PAIN GOTTEN WORSE UNTIL TODAY. Transition of care: patient was not received from another setting of care. Onset of symptoms was July 24, 2018 at 08:00. Risk Assessment: Do you want to hurt yourself or someone else? Patient reports no desire to harm self or others. Initial Sepsis Screen: Does the patient meet any 2 criteria? No. Patient's initial sepsis screen is negative. Does the patient have a suspected source of infection? No. Patient's initial sepsis screen is negative. Care prior to arrival: None. 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 - Social history:: Smoking status: Patient/guardian denies using tobacco, never smoked. - Ebola Screening: : Patient negative for fever greater than or equal to 101.5 degrees Fahrenheit, and additional compatible Ebola Virus Disease symptoms Patient denies exposure to infectious person Patient denies travel to an Ebola-affected area in the 21 days before illness onset. Screenin:50 Abuse screen: Denies threats or abuse. Denies injuries from another. Nutritional rv screening: No deficits noted. Tuberculosis screening: No symptoms or risk factors identified. Fall Risk None identified. Assessment: 23:50 General: Appears in no apparent distress. comfortable, Behavior is calm, cooperative. rv Pain: Complains of pain in RIGHT ELBOW AND RIGHT KNEE. Neuro: Level of Consciousness is awake, alert, obeys commands, Oriented to person, place, time, situation. Cardiovascular: Capillary refill < 3 seconds. Respiratory: Airway is patent. GI: No signs and/or symptoms were reported involving the gastrointestinal system. : No signs and/or symptoms were reported regarding the genitourinary system. EENT: No signs and/or symptoms were reported regarding the EENT system. Derm: Skin is intact. Musculoskeletal: Reports pain in RIGHT ELBOW, RIGHT KNEE. Vital Signs: 23:48 BP 105 / 61; Pulse 105; Resp 16; Temp 98.4; Pulse Ox 99% on R/A; Weight 117.93 kg (R); rv Height 5 ft. 5 in. (165.10 cm); 08/15 01:10 BP 112 / 66; Pulse 99; Resp 16; Pulse Ox 99% on R/A; rv 08/14 23:48 Body Mass Index 43.27 (117.93 kg, 165.10 cm) rv ED Course: 08/14 23:20 Patient arrived in ED. am2 23:36 Alexandr Albright MD is Attending Physician. gs 23:47 Triage completed. rv 23:51 Patient has correct armband on for positive identification. Bed in low position. Call rv light in reach. Side rails up X 1. Pulse ox on. NIBP on. 23:51 Patient notified of wait time Patient's private physician notified. rv 08/15 00:40 X-ray completed. Portable x-ray completed in exam room. Patient tolerated procedure kw well. 00:51 Foot Right 3 View XRAY In Process Unspecified. EDMS 00:56 Bradly Grajeda MD is Referral Physician. gs 01:10 No provider procedures requiring assistance completed. Patient did not have IV access rv during this emergency room visit. Administered Medications: No medications were administered Outcome: 00:57 Discharge ordered by . gs 01:10 Discharged to home ambulatory. rv 01:10 Condition: good 01:10 Discharge instructions given to patient, Instructed on discharge instructions, follow up and referral plans. Demonstrated understanding of instructions, follow-up care. 01:12 Patient left the ED. rv Signatures: Dispatcher [employer] EDMS Alanis Maloney Amanda am2 Alexandr Albright MD MD gs Kg Garrido, RN RN rv
--- NOTE | 2018-08-15 09:40 | RAD REPORT ---
EXAM DESCRIPTION: RAD - Foot Right 3 View - 08/15/2018 12:43 am CLINICAL HISTORY: Right foot pain status post injury FINDINGS: No acute fracture or dislocation is seen. Bones are osteoporotic
== END 2018-08-15 01:12 | disposition home or self-care (01) ==
LOC: ER 23:15
DX: S93.621A Sprain of tarsometatarsal ligament of right foot, initial encounter (principal); W19.XXXA Unspecified fall, initial encounter; Y93.9 Activity, unspecified; Y92.009 Unspecified place in unspecified non-institutional (private) residence as the place of occurrence of the external cause; Z79.4 Long term (current) use of insulin; E11.9 Type 2 diabetes mellitus without complications
CPT/HCPCS: 99283

== ENCOUNTER 2019-04-13 18:10 | Emergency (ER) | payer OTHER ==
--- OUTSIDE RECORDS SUMMARY | 2019-04-13 18:12 | XMS REPORT ---
[...] mellitus without E11.9 Active complication, unspecified whether adjunct faculty for medical terminology insulin use Assessment Body mass index (BMI) of 45.0-49.9 Z68.42 Active in adult Problem Type 2 diabetes mellitus without E11.9 Active complication, unspecified whether senior care insulin use Medications Medication Code Code Instructions Start End Status Dosage System Date Date Humalog [facility] 18184473250 100 UNIT/ML Inactive 5u per Subcutaneous sliding three times a scale day Metformin HCl ND 83998933310 1000 MG Orally Active 1 tablet Twice a day with a meal Soliqua ND 03332472019 100-33 March 17, Active 10 units UNT-MCG/ML 2017 Subcutaneous daily Tramadol HCl ND 24062545331 50 MG Orally Active 1 tablet every 6 hrs as needed NovoLog ND 00395699768 100 UNIT/ML Inactive 15u Subcutaneous at bedtime Lisinopril ND 69448527389 5 MG Orally Active 1 tablet Once a day Ibuprofen ND 92505587994 800 MG Orally Active 1 tablet Three times a with food day or milk as needed Results No Known Results Summary Purpose eClinicalWorks Submission
--- NOTE | 2019-04-13 18:35 | ER ---
Nurse's Notes [facility] Name: Teresa Mayorga Age: 38 yrs Sex: Female : 1980 Arrival Date: 04/13/2019 Time: 18:12 Bed 23 Private MD: DEVORAH TREJO Diagnosis: Pain in left wrist Presentation: 04/13 18:24 Presenting complaint: Patient states: i cant get into my dr. and i need a work note, tw2 but my left wrist hurts, i was told i had carpal tunnel, i didn't fall and i had a cyst on my right wrist but i dont know if i have one on the left or not. Transition of care: patient was not received from another setting of care. Onset of symptoms was April 13, 2019. Risk Assessment: Do you want to hurt yourself or someone else? Patient reports no desire to harm self or others. Initial Sepsis Screen: Does the patient meet any 2 criteria? No. Patient's initial sepsis screen is negative. Does the patient have a suspected source of infection? No. Patient's initial sepsis screen is negative. Care prior to arrival: None. 18:24 Method Of Arrival: Ambulatory tw2 18:24 Acuity: VINNIE 4 tw2 Triage Assessment: 18:25 General: Appears in no apparent distress. obese, well groomed, Behavior is calm, tw2 cooperative, appropriate for age. Pain: Complains of pain in LEFT wrist. EENT: No signs and/or symptoms were reported regarding the EENT system. Neuro: Level of Consciousness is awake, alert, obeys commands, Oriented to person, place, time, situation. Cardiovascular: Patient's skin is warm and dry. Respiratory: Airway is patent Respiratory effort is even, unlabored, Respiratory pattern is regular, symmetrical. GI: No signs and/or symptoms were reported involving the gastrointestinal system. : No signs and/or symptoms were reported regarding the genitourinary system. Derm: No signs and/or symptoms reported regarding the dermatologic system. Musculoskeletal: Swelling present in left hand. Injury Description: pt denies injury. 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 tw2 Historical: - Allergies: 18:30 No Known Allergies; tw2 - Home Meds: 18:30 Lantus Sub-Q [Active]; metformin 1,000 mg Oral tr24 1 tab twice dailyt [Active]; tw2 Novolog Sub-Q [Active]; lisinopril Oral [Active]; - PMHx: 18:30 Diabetes - IDDM; tw2 - PSHx: 18:30 ; tw2 - Immunization history:: Adult Immunizations. - Social history:: Smoking status: . - Ebola Screening: : Patient denies travel to an Ebola-affected area in the 21 days before illness onset. Screenin:31 Abuse screen: Denies threats or abuse. Nutritional screening: No deficits noted. tw2 Tuberculosis screening: No symptoms or risk factors identified. Fall Risk None identified. Assessment: 18:49 Reassessment: Patient appears in no apparent distress at this time. No changes from tw2 previously documented assessment. Patient and/or family updated on plan of care and expected duration. Pain level reassessed. Patient is alert, oriented x 3, equal unlabored respirations, skin warm/dry/pink. Vital Signs: 18:26 BP 109 / 89; Pulse 91; Resp 18; Temp 97.2(TE); Pulse Ox 99% on R/A; tw2 ED Course: 18:12 Patient arrived in ED. dl4 18:12 DEVORAH TREJO is Private Physician. dl4 18:21 Bed in low position. Call light in reach. tw2 18:22 Han Odell PA is PHCP. cp 18:22 Han Thomas MD is Attending Physician. cp 18:24 Merary Sun, JERRI is Primary Nurse. tw2 18:25 Triage completed. tw2 18:25 Arm band placed on. tw2 18:34 Obed Beatty MD is Referral Physician. cp 18:48 No provider procedures requiring assistance completed. Patient did not have IV access tw2 during this emergency room visit. Administered Medications: 18:45 Drug: Tylenol 1000 mg Route: PO; tw2 18:48 Follow up: Response: No adverse reaction tw2 18:46 Drug: Ibuprofen 800 mg Route: PO; tw2 18:48 Follow up: Response: No adverse reaction tw2 Outcome: 18:35 Discharge ordered by . cp 18:48 Discharged to home ambulatory. tw2 18:48 Condition: stable 18:48 Discharge instructions given to patient, Instructed on discharge instructions, follow up and referral plans. medication usage, splint care, preformed Demonstrated understanding of instructions, follow-up care, medications, splint care, Prescriptions given X 1. 18:49 Patient left the ED. tw2 Signatures: Han Odell PA PA cp Wise, Tara, RN RN tw2 Barrett Mann dl4
--- NOTE | 2019-04-13 18:36 | EDPHYS ---
Physician Documentation [facility] Name: Teresa Mayorga Age: 38 yrs Sex: Female : 1980 Arrival Date: 04/13/2019 Time: 18:12 Bed 23 Private MD: DEVORAH TREJO ED Physician Han Thomas HPI: 04/13 18:27 This 38 yrs old Female presents to ER via Ambulatory with complaints of Wrist cp pain. 18:27 The patient or guardian reports pain, tenderness, weakness. The complaints affect the cp left wrist diffusely. Context: worse since yesterday after playing with child. Onset: The symptoms/episode began/occurred gradually. Modifying factors: the symptoms are aggravated by movement, palpation. Associated signs and symptoms: Pertinent negatives: cyanosis distally, decreased sensation distally. Patient reports she was told she has carpel tunnel of left wrist in the past by primary physician but has not followed up with orthopedist or neurology. AC[employer] PA[employer]: 18:26 LMP N/A - , . tw2 Historical: - Allergies: 18:30 No Known Allergies; tw2 - Home Meds: 18:30 Lantus Sub-Q [Active]; metformin 1,000 mg Oral tr24 1 tab twice dailyt [Active]; tw2 Novolog Sub-Q [Active]; lisinopril Oral [Active]; - PMHx: 18:30 Diabetes - IDDM; tw2 - PSHx: 18:30 ; tw2 - Immunization history:: Adult Immunizations. - Social history:: Smoking status: . - Ebola Screening: : Patient denies travel to an Ebola-affected area in the 21 days before illness onset. ROS: 18:30 Constitutional: Negative for body aches, chills, fever, poor PO intake. cp 18:30 Cardiovascular: Negative for chest pain. 18:30 Respiratory: Negative for cough, shortness of breath, wheezing. 18:30 MS/extremity: Positive for pain, tenderness, of the left wrist, weakness of left hand, Negative for injury or acute deformity, decreased range of motion. 18:30 All other systems are negative. Exam: 18:31 Head/Face: Normocephalic, atraumatic. cp 18:31 Constitutional: The patient appears in no acute distress, alert, awake, non-toxic, well developed, well nourished. 18:31 Musculoskeletal/extremity: Perfusion: the extremity is normally perfused throughout, Sensation intact. Joints: All joints are normal except the left wrist displays painful range of motion, swelling, tenderness along volar surface of wrist. Vital Signs: 18:26 BP 109 / 89; Pulse 91; Resp 18; Temp 97.2(TE); Pulse Ox 99% on R/A; tw2 Procedures: 18:45 Splinting: Splint applied to left wrist using wrist splint, applied by nurse. Examined cp by me, post splint application: neurovascular intact, Patient tolerated well. MDM: 18:22 Patient medically screened. benson 18:30 Differential diagnosis: tendonitis, sprain, strain, carpal tunnel. cp 18:35 Data reviewed: vital signs, nurses notes, and as a result, I will discharge patient. cp 18:35 Counseling: I had a detailed discussion with the patient and/or guardian regarding: the cp historical points, exam findings, and any diagnostic results supporting the discharge/admit diagnosis, the need for outpatient follow up, a orthopedic surgeon, to return to the emergency department if symptoms worsen or persist or if there are any questions or concerns that arise at home. Response to treatment: the patient's symptoms have markedly improved after treatment, and as a result, I will discharge patient. 04/13 18:34 Order name: Splint - Wrist; Complete Time: 18:48 cp Administered Medications: 18:45 Drug: Tylenol 1000 mg Route: PO; tw2 18:48 Follow up: Response: No adverse reaction tw2 18:46 Drug: Ibuprofen 800 mg Route: PO; tw2 18:48 Follow up: Response: No adverse reaction tw2 Disposition: 19:00 Chart complete. cp 04/14 07:48 Co-signature as Attending Physician, Han Thomas MD I agree with the assessment and [facility] plan of care. Disposition: 04/13/19 18:35 Discharged to Home. Impression: Pain in left wrist. - Condition is Stable. - Discharge Instructions: Wrist Pain. - Prescriptions for Diclofenac Sodium 75 mg Oral Tablet, Delayed Release (E.C.) - take 1 tablet by ORAL route 2 times per day; 20 tablet. - Medication Reconciliation Form, Thank You Letter, Antibiotic Education, Prescription Opioid Use, Work release form form. - Follow up: Obed Beatty MD; When: 5 - 6 days; Reason: pain continues. - Problem is an ongoing problem. - Symptoms have improved. Signatures: Han Thomas MD MD cha Page, Corey, PA PA cp Wise, Tara, RN RN tw2 Corrections: (The following items were deleted from the chart) 04/13 18:49 18:35 04/13/2019 18:35 Discharged to Home. Impression: Pain in left wrist. Condition is tw2 Stable. Forms are Work release form, Medication Reconciliation Form, Thank You Letter, Antibiotic Education, Prescription Opioid Use. Follow up: Dr. Obed Beatty; When: 5 - 6 days; Reason: pain continues. Problem is an ongoing problem. Symptoms have improved. cp
[2019-04-13] MEDS ORDERED: IBUPROFEN 400 MG TAB ONE (18:57)
[2019-04-13] MEDS ORDERED: ACETAMINOPHEN 500 MG TAB ONE (18:57)
== END 2019-04-13 18:49 | disposition home or self-care (01) ==
LOC: ER 18:10
DX: M25.532 Pain in left wrist (principal); E11.9 Type 2 diabetes mellitus without complications; Z79.4 Long term (current) use of insulin
CPT/HCPCS: 99283